=== PATIENT | female | born 1960 | race Caucasian/White ===

== ENCOUNTER 2025-04-05 12:27 | Emergency (ER) | payer BC, SELFPAY ==
[2025-04-05 12:32] VITALS: BP 160/93; PULSE 92; RESP 16; TEMP 36.4; O2SAT 95; BMI 30.3
--- NOTE | 2025-04-05 12:36 | ED_ITS ---
HPI - General Adult General Chief complaint: Eye Problems Stated complaint: Floaters R eye Time Seen by Provider: 04/05/25 13:06 Source: patient Mode of arrival: ambulatory Limitations: no limitations History of Present Illness ED Provider: DR. Avitia HPI narrative: 65-year-old female came in for evaluation after having a dark floater, squiggly lines, and blurry vision in her right eye started since 11:00 in the morning, patient was bending down for few hours trying to assemble [email or web address] bed, patient's symptom has been constant since it started, declined any trauma to her eye, no double vision, otherwise no weakness, no numbness, no dizziness, no headache, no right or left temporal pain. Patient has a prescription eyeglasses that she does not wear often no history of contact lens, no history of retinal detachment. Related Data Allergies Allergy/AdvReac Type Severity Reaction Status Date / Time gluten Allergy Gastrointestinal Verified 04/05/25 12:35 Upset Penicillins Allergy Hives Verified 04/05/25 12:35 Review of Systems Review of Systems: All other systems are reviewed and are negative Constitutional: Reports as per HPI and Reports no additional constitutional complaints Eyes: Reports as per HPI and Reports no additional eye complaints Reports system reviewed and no additional complaints, except as documented Cardiovascular: Reports as per HPI and Reports no additional cardiovascular complaints Respiratory: Reports as per HPI and Reports no additional respiratory complaints Gastrointestinal: Reports as per HPI and Reports no additional gastrointestinal complaints Genitourinary: Reports no additional female genitourinary complaints Musculoskeletal: Reports no additional musculoskeletal complaints Skin/Breast: Reports system reviewed and no additional complaints, except as docu Psychiatric: Reports no additional psychiatric complaints Endocrine: Reports no additional endocrine complaints Hematologic/Lymphatic: Reports no additional hematologic/lymphatic complaints Allergic/Immunologic: Reports no additional allergic/immunologic complaints Reports system reviewed and no additional complaints, except as documented and Reports Abnormal speech present [facility] Social History Social History Unable to assess alcohol history related to: Unknown Smoked in Last 30 Days: No Use of substances other than those prescribed or required for medical reasons: Unknown Advance Directives: No Advance Directives Information Provided: Yes Do you have a plan to hurt others: No Plan Physical Exam ED Vital Signs: Vital Signs - 24 hr 04/05/25 12:32 04/05/25 14:52 Temperature 97.5 F 97.5 F Pulse Rate 92 92 Respiratory Rate 16 16 Blood Pressure 160/93 H 160/83 H Pulse Oximetry 95 95 Oxygen Delivery Method Room Air Room Air BMI result Body Mass Index 30.3 Vital signs have been reviewed and appear to be correct. Blood pressure elevated. Heart rate normal. Respiratory rate normal. Temperature normal. Oxygen saturation normal. Appearance: Alert. Oriented X3. No acute distress. Head: Normal external exam. Normocephalic. Atraumatic. No Das signs noted. No raccoon eyes noted Eyes: Patient reports worsening of blurred vision in the right eye. VA General: appearance normal, both eyes and all related structures 20/40, left 20/40, both 20/25. Visual Goldman: normal visual goldman by confrontation Alignment and Position: alignment normal and position normal Periorbital: periorbital findings normal Eyelids: Yes eyelids normal Conjunctivae: conjunctivae normal Sclerae: sclerae normal Corneas: corneas normal Pupils: Equal, round and reactive pupils present and Pupil accommodation reflex normal IOP: 17 on right, 14 in the left. EOM: EOM abnormal (Limited abduction of right eye) and No Nystagmus present Right eye ultrasound: Shows no retinal detachment. ENT: TM's Normal. Pharynx normal. Uvula midline. Moist mucous membranes. No trismus noted. No drooling noted. No muffled voice noted. Neck: Normal inspection. Neck supple. FROM. No adenopathy. Thyroid Normal. No meningeal signs. No neck mass noted. CVS: Normal heart rate and rhythm. Heart sound normal. No murmurs noted. Pulses normal throughout. Respiratory: No respiratory distress. Painless inspiration. Breath sounds normal. No wheezes/rales/rhonchi noted. Chest nontender. No accessory muscle usage noted or decreased air movement noted. Abdomen: Soft and nontender. Bowel sounds normal in all 4 quadrants. No distention noted. No organomegaly noted. No visible injury noted. Back: No CVA tenderness. Full range of motion noted. Skin: Skin warm and dry. Normal skin color. Normal skin turgor. No rashes/lesions/lacerations noted. Extremities: No lower extremity edema. Extremities exhibit normal range of motion. Extremities nontender. Neuro: Mental status: Normal attention, orientation, memory, and affect. Cranial nerves: Pupils are equal, round and reactive to light, EOMI, visual goldman are fall, face is symmetric, facial sensations are normal. Motor examination normal muscle tone, strength to 4 extremities. DTR are +2, planter's are flexor. Sensory exam; normal coordination, no ataxia, gait stable. Cerebellar exam: [id number] and [id number] is normal. Extrapyramidal system: No tremors, no rigidity with normal facial expressions. Pronator drift not present NIH Stroke Scale Internal: Initial- Upon Arrival Level of Consciousness: Alert Level of Consciousness Questions: Answers both questions correctly Level of Consciousness Commands: Performs both tasks correctly Best Gaze: Normal Visual: No visual loss Facial Palsy: Normal Motor Arm (Right): No drift Motor Arm (Left): No drift Motor Leg (Right): No drift Motor Leg (Left): No drift Limb Ataxia: Absent Sensory: Normal Best Language: No aphasia Dysarthia: Normal Extinction and Inattention: No abnormality Score: 0 Course Course Course Narrative: RME: 55-year-old female presents to ED for right eye floaters, flashing light, mixed with some black lines that began 1 hour ago. Patient denies any headache, slurred speech, facial droop or paralysis of extremities. NIH score is 0. Patient is brought to bed 22 Reevaluation(s) Reevaluation #1: Normal neuro exam, eye exam in the ED is unremarkable, case discussed with Dr. Lakhani who recommended to contact her eye doctor. Patient still complaining of persistent of her symptoms, no headache, no temporal pain. Time: 14:04 Reevaluation #2: Case discussed with [facility] [place] [facility] (patient's eye doctor) who will see the patient at 03:15 today. Patient is stable to drive herself. Time: 14:27 Medications Administered Discontinued Medications Generic Name Dose Route Start Last Admin Trade Name Freq PRN Reason Stop Dose Admin Tetracaine HCl 1 drop 04/05/25 13:16 04/05/25 14:26 Tetracaine Hcl/Pf 0.5% Oph Shanelle 4 Ml Drops EYE-BOTH 04/05/25 13:17 1 drop ONCE ONE Administration Medical Decision Making Differential Diagnosis Differential Diagnoses: The differential diagnosis associated with the presentation includes (Retinal detachment, lens dislocation, CVA, glaucoma.) Admission/Observation Consideration of admission/observation: Escalation of care including admission/observation considered Consult Healthcare Provider Management of the patient was discussed with: [employer] (Dr. Lakhani) Discharge Plan Discharge Clinical Impression: Blurred vision, right eye Patient Disposition: Home, Self-Care Instructions: Blurred Vision (ED) Additional Instructions: Go to your eye doctor clinic you have an appointment at 03:15 Referrals: [facility] [Outside] Interventions: ED Discharge Assessment Last Done: 04/05/25 14:52 Discharge Date/Time: 04/05/25 14:53 Print Language: [place]
[2025-04-05] MEDS: Tetracaine HCl/PF 0.5% Oph Sol 4 ML DROPS 1 DROP EYE-BOTH (14:26)
[2025-04-05 14:52] VITALS: BP 160/83; PULSE 92; RESP 16; TEMP 36.4; O2SAT 95
== END 2025-04-05 14:53 | disposition home or self-care (01) ==
PROVIDERS: Emergency Provider Emergency Medicine
DX: H43.391 Other vitreous opacities, right eye (principal); H53.8 Other visual disturbances
CPT/HCPCS: 99283; 99284